=== PATIENT | female | born 1985 | race Caucasian/White ===

== ENCOUNTER 2019-07-03 13:30 | Emergency (ER) | payer OTHER ==
[2019-07-03 13:41] VITALS: BP 126/77
--- NOTE | 2019-07-03 14:19 | ED Physician Documentation ---
PD HPI URI - Stated complaint Stated Complaint: FEVER,CHEST PX, COUGH,17 WKS PREG - Chief complaint Chief Complaint: Fever - History obtained from History obtained from: Patient - History of Present Illness Timing duration: Days (4) Timing details: Gradual onset Pain level max: 5 Pain level now: 4 Associated symptoms: Fever, Productive cough (green/yellow) Contributing factors: Other (, 17 weeks) Similar symptoms before: Diagnosis (influenza B dx 2 days ago on tamiflu) Review of Systems Constitutional: reports: Fever Nose: reports: Rhinorrhea / runny nose, Congestion Respiratory: reports: Cough GI: denies: Abdominal Pain, Vomiting, Diarrhea : denies: Dysuria Skin: denies: Rash PD PAST MEDICAL HISTORY - Past Medical History Past Medical History: Yes Cardiovascular: None Respiratory: None Neuro: None Endocrine/Autoimmune: None GI: None 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 : None HEENT: None Psych: None Musculoskeletal: None Derm: None - Past Surgical History Past Surgical History: Yes /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: section - Present Medications Home Medications: Ambulatory Orders Medication Instructions Recorded Confirmed Guaifenesin/Dextromethorphan 1 tab PO BID PRN #30 tab.er.12h 07/03/19 [Mucinex Dm ER 600-30 mg Tablet] - Allergies Allergies/Adverse Reactions: Allergies Allergy/AdvReac Type Severity Reaction Status Date / Time No Known Drug Allergies Allergy Verified 07/03/19 13:37 - Social History Does the pt smoke?: No Smoking Status: Never smoker Does the pt drink ETOH?: No Does the pt have substance abuse?: No - Immunizations Immunizations are current?: Yes - POLST Patient has POLST: No PD ED PE NORMAL - Vitals Vital signs reviewed: Yes - General General: Alert and oriented X 3, No acute distress - HEENT HEENT: Moist mucous membranes - Neck Neck: Supple, no meningeal sign - Cardiac Cardiac: RRR, Strong equal pulses - Respiratory Respiratory: No respiratory distress, Clear bilaterally - Abdomen Abdomen: Soft, Non tender, Non distended - Derm Derm: Warm and dry - Neuro Neuro: Alert and oriented X 3 - Psych Psych: Normal mood, Normal affect Results - Vitals Vitals: Vital Signs - 24 hr 07/03/19 13:37 Temperature 37 C Heart Rate 93 Respiratory 20 Rate Blood Pressure 126/77 O2 Saturation 99 Oxygen O2 Source Room air PD MEDICAL DECISION MAKING - ED course Complexity details: considered differential, d/w patient ED course: 34-year-old female, 17 weeks , heart rate of 154 bpm on bedside ultrasound. Images shown to the patient. She was recently diagnosed with influenza B. She is well-appearing, nontoxic. No hypoxia or respiratory distress. She had a small amount of blood-tinged sputum, likely secondary to the shear forces from coughing. Lungs are clear to auscultation bilaterally. No wheezing. We will hold chest x-ray at this time. We will continue the Tamiflu at home and add a cough medication for her. Patient counseled regarding signs and symptoms for which I believe and urgent re-evaluation would be necessary. Patient with good understanding of and agreement to plan and is comfortable going home at this time This document was made in part using voice recognition software. While efforts are made to proofread this document, sound alike and grammatical errors may occur. Departure - Departure Disposition: 01 Home, Self Care Clinical Impression: Influenza B Condition: Good Instructions: ED Flu Follow-Up: your,doctor in 1 week [Other] Prescriptions: Guaifenesin/Dextromethorphan [Mucinex Dm ER 600-30 mg Tablet] 1 tab PO BID PRN #30 tab.er.12h PRN Reason: Cold Symptons Comments: Drink plenty of fluids at home. Return if you worsen. Follow-up with your OB for further care.
== END 2019-07-03 14:24 | disposition home or self-care (01) ==
LOC: ED 13:30
DX: O99.512 Diseases of the respiratory system complicating pregnancy, second trimester (principal); J10.1 Influenza due to other identified influenza virus with other respiratory manifestations; Z3A.17 17 weeks gestation of pregnancy
CPT/HCPCS: 99282; 99284